=== PATIENT | male | born 1980 | race Caucasian/White ===

== ENCOUNTER 2023-10-18 05:41 | Day surgery (SDC) | payer OTHER ==
[~2023-10-18] VITALS: Ht 165.1 cm; Wt 90.3 kg
[~2023-10-18 05:41] MED LIST: ATOR40TA72 PO
[2023-10-18 05:50] VITALS: BP_SYST 140; BP_SYST 141; BP_DIAS 98; PULSE 70; RESP 16; TEMP 98.2; O2SAT 97
[2023-10-18] MEDS: famotidine 20mg tablet PO ONE (06:13)
[2023-10-18] MEDS: ringers solution, lacted 1,000 ML IV SCH (06:13)
[2023-10-18] MEDS: cefazolin 2gm/D5W 100mL 100 ML IV ONE (06:14)
[2023-10-18 06:45] LABS: BASOPHILS # (AUTO) 0.1 X10'3 (0-0.2); EOSINOPHILS # (AUTO) 0.4 X10'3 (0-0.9); EOSINOPHILS % (AUTO) 6.2 % (0-6); LYMPHOCYTES # (AUTO) 1.2 X10'3 (1.1-4.8); LYMPHOCYTES % (AUTO) 18.9 % (21-51); MEAN CORPUSCULAR HEMOGLOBIN 30.8 PG (27.0-31.0); MEAN CORPUSCULAR HGB CONC 33.8 g/dL (33.0-36.5); MEAN CORPUSCULAR VOLUME 91.3 FL (78-98); MONOCYTES # (AUTO) 0.7 X10'3 (0-0.9); MONOCYTES % (AUTO) 11.3 % (2-12); NEUTROPHILS # (AUTO) 4.1 X10'3 (1.8-7.7); NEUTROPHILS % (AUTO) 62.6 % (42-75); PRE OP HEMATOCRIT 44.3 % (42.0-52.0); PRE OP PLATELET COUNT 214 X10'3 (140-440); PRE OP WHITE BLOOD COUNT 6.5 10'3 (4.8-10.8); RED BLOOD COUNT 4.85 X10'6 (4.70-6.10); RED CELL DISTRIBUTION WIDTH 13.1 % (11.5-14.5)
[2023-10-18 06:51] LABS: ALBUMIN 3.5 G/DL (3.4-5.0); ALBUMIN/GLOBULIN RATIO 0.9 (1.1-1.5); ALKALINE PHOSPHATASE 73 IU/L (46-116); BLOOD UREA NITROGEN 20 MG/DL (7-18); BUN/CREATININE RATIO 17.9 (10.0-20.0); CALCIUM 8.5 MG/DL (8.5-10.1); CHLORIDE 107 MMOL/L (99-107); CREATININE 1.12 MG/DL (0.60-1.10); PRE OP ALT 46 U/L (30-65); PRE OP ANION GAP 7 (8-16); PRE OP AST 21 U/L (10-37); PRE OP BILIRUB, TOTAL 0.5 MG/DL (0.0-1.0); PRE OP GLUCOSE 100 MG/DL (70-104); PRE OP POTASSIUM 3.9 MMOL/L (3.4-5.1); PRE OP SODIUM 142 MMOL/L (135-145); TOTAL CARBON DIOXIDE 28.3 MMOL/L (24-32); TOTAL PROTEIN 7.4 G/DL (6.4-8.2); eCRCL 73 ML/MIN; eGFR 71 ML/MIN
[2023-10-18] MEDS ORDERED: fentaNYL/PF 50MCG/1 ML 2ML syringe ONE (07:40)
[2023-10-18] MEDS ORDERED: midazolam 1 mg/ML 2ml injection ONE (07:40)
[2023-10-18] MEDS ORDERED: propofol inj 20 ML IV ONE (07:40)
[2023-10-18] MEDS: BUPIVAcaine/PF 2.5mg/ml (0.25%) 10ml vial ONE (07:42)
[2023-10-18] MEDS: LIDOcaine 2% (20mg/ml) 5ml vial ONE (07:43)
[2023-10-18] MEDS ORDERED: proCHLORperazine 10 MG/2 ml inj IV PRN (07:45)
[2023-10-18] MEDS ORDERED: ondansetron/PF 4mg/2ml inj IV PRN (07:45)
[2023-10-18] MEDS ORDERED: morphine 2 MG/ML inj. syringe IV PRN (07:45)
[2023-10-18] MEDS ORDERED: meperidine/PF 25mg/ml syringe IV PRN ×3 (07:45)
[2023-10-18] MEDS ORDERED: ringers solution, lacted 1,000 ML IV SCH (07:45)
[2023-10-18] MEDS ORDERED: morphine 4 MG/ML inj SYRINge IV PRN (07:45)
[2023-10-18 08:44] VITALS: BP 132/85; PULSE 76; RESP 14; O2SAT 95
[2023-10-18 08:50] VITALS: BP 134/91; PULSE 76; RESP 14; O2SAT 95
[2023-10-18 09:00] VITALS: BP 144/98; PULSE 72; RESP 14; O2SAT 95
[2023-10-18 09:10] VITALS: BP 139/98; PULSE 60; RESP 12; O2SAT 99
[2023-10-18 09:20] VITALS: BP 149/97; PULSE 69; RESP 14; O2SAT 98
== END 2023-10-18 09:24 | disposition home or self-care (01) ==
LOC: PAS 05:41
PROVIDERS: ATTEND Orthopaedic Surgery Hand Surgery
DX: G56.03 Carpal tunnel syndrome, bilateral upper limbs (principal); E78.00 Pure hypercholesterolemia, unspecified; E66.9 Obesity, unspecified; Z68.32 Body mass index [BMI] 32.0-32.9, adult; Z72.89 Other problems related to lifestyle; Z87.891 Personal history of nicotine dependence; Z79.899 Other long term (current) drug therapy
CPT/HCPCS: 29848; 36415; 80053; 82948; 85025; 93005; J0690; J2250; J2704; J3010; J3490; J7030; J7120; Z7506; Z7512; A4215; A6449; A7000